=== PATIENT | female | born 1975 | race African-American/Black ===

== ENCOUNTER 2016-10-11 04:27 | Emergency (ER) | payer MEDICAID ==
[~2016-10-11] VITALS: Ht 177.8 cm; Wt 93.0 kg
[~2016-10-11 04:27] MED LIST: BENADRYL
[2016-10-11 04:49] VITALS: BP 150/91
[2016-10-11] MEDS ORDERED: KETOROLAC 60MG/2ML VIAL IM ONE (07:00)
== END 2016-10-11 09:20 | disposition home or self-care (01) ==
LOC: ER 08:34
DX: K08.89 Other specified disorders of teeth and supporting structures (principal); F17.200 Nicotine dependence, unspecified, uncomplicated
CPT/HCPCS: 99283

== ENCOUNTER 2017-11-16 01:27 | Emergency (ER) | payer SELFPAY ==
[~2017-11-16] VITALS: Ht 177.8 cm; Wt 94.0 kg
[2017-11-16 01:39] VITALS: BP 124/77
== END 2017-11-16 02:00 | disposition left against medical advice (07) ==
LOC: ER 01:27
DX: Z53.21 Procedure and treatment not carried out due to patient leaving prior to being seen by health care provider (principal)

== ENCOUNTER 2017-11-16 08:59 | Emergency (ER) | payer SELFPAY ==
[~2017-11-16] VITALS: Ht 157.5 cm; Wt 92.0 kg
[2017-11-16 11:58] LABS: CLARITY URINE CLEAR (CLEAR); COLOR URINE YELLOW (YELLOW); KETONES URINE NEGATIVE (NEGATIVE); LEUKOCYTE ESTERASE URINE NEGATIVE (NEGATIVE); NITRITE URINE NEGATIVE (NEGATIVE); OCCULT BLOOD URINE NEGATIVE (NEGATIVE); PROTEIN URINE NEGATIVE (NEGATIVE); SPECIFIC GRAVITY URINE 1.016 (1.005-1.030)
[2017-11-16 12:11] VITALS: BP 126/74
== END 2017-11-16 12:15 | disposition home or self-care (01) ==
LOC: ER 08:59
DX: L50.9 Urticaria, unspecified (principal); F32.9 Major depressive disorder, single episode, unspecified; F17.200 Nicotine dependence, unspecified, uncomplicated
CPT/HCPCS: 81003; 81025; 93005; 99285

== ENCOUNTER 2018-11-23 23:42 | Emergency (ER) | payer SELFPAY ==
[~2018-11-23] VITALS: Ht 177.8 cm; Wt 100.0 kg
[2018-11-24] MEDS ORDERED: CEFTRIAXONE 1 G PREMIX 50 ML IV ONE (02:30)
[2018-11-24] MEDS ORDERED: DIPHENHYDRAMINE 25MG CAPSULE PO ONE (02:30)
[2018-11-24] MEDS ORDERED: HYDROCORTISONE 1% CREAM 30GM TOP ONE (02:30)
[2018-11-24] MEDS ORDERED: DEXAMETHASONE 10 MG/ML VIAL IV ONE (02:30)
[2018-11-24 03:03] LABS: CHLORIDE 106 mEq/L (98-107)
[2018-11-24 03:48] LABS: HEMATOCRIT 39.1 % (36.0-48.0); HEMOGLOBIN 13.5 g/dL (12.0-16.0); MEAN CORPUSCULAR HEMOGLOBIN 26.4 pg (28.0-32.0); MEAN CORPUSCULAR VOLUME 76.7 fL (81.0-99.0); PLATELET 327 x1000/uL (130-400); RED BLOOD CELL COUNT 5.09 mill/uL (4.2-5.4); RED CELL DISTRIBUTION WIDTH 20.1 % (11.6-14.6)
[2018-11-24] MEDS ORDERED: POTASSIUM CHLORIDE 20MEQ TABLET SR PO ONE (04:15)
[2018-11-24 04:54] VITALS: BP 135/80
== END 2018-11-24 05:03 | disposition home or self-care (01) ==
LOC: ER 23:42
DX: S40.862A Insect bite (nonvenomous) of left upper arm, initial encounter (principal); L03.114 Cellulitis of left upper limb; W57.XXXA Bitten or stung by nonvenomous insect and other nonvenomous arthropods, initial encounter; Y93.89 Activity, other specified; Y92.89 Other specified places as the place of occurrence of the external cause; F17.210 Nicotine dependence, cigarettes, uncomplicated
CPT/HCPCS: 36415; 80048; 83605; 85027; 87040; 96365; 96375; 99284; J0696; J1100; Q0163; Z7610